=== PATIENT | male | born 1940 | race Caucasian/White ===

== ENCOUNTER → 2017-10-01 | Outpatient (CLI) | payer MEDICARE, BC ==
[~2017-10-01] MED LIST: ALEV220T14 PO; ASPI81TA23 PO; DOXA1TAB43 PO; ENAL20TA PO; FLUT50SP EACH NARE; HYDR-3516 PO; NITR1SUB3 SL; PROSCAP3 PO; SM CTAB PO
[2017-10-01 09:55] LABS: AUTOMATED NEUTROPHIL # 2.8 TH/MM3 (1.8-7.7); BASOPHIL % 0.2 % (0.0-2.0); EOSINOPHIL # 0.1 TH/MM3 (0-0.4); EOSINOPHIL % 1.5 % (0.0-4.0); HEMATOCRIT 43.6 % (39.0-51.0); HEMOGLOBIN 14.7 GM/DL (13.0-17.0); LYMPH % 22.9 % (9.0-44.0); MEAN CORPUSCULAR HEMOGLOBIN 27.9 PG (27.0-34.0); MEAN CORPUSCULAR HGB CONC 33.7 % (32.0-36.0); MEAN PLATELET VOLUME 6.5 FL (7.0-11.0); MONO % 8.6 % (0.0-8.0); MONOCYTE # 0.4 TH/MM3 (0-0.9); NEUT % 66.8 % (16.0-70.0); PLATELET COUNT 147 TH/MM3 (150-450); RED BLOOD COUNT 5.25 MIL/MM3 (4.50-5.90); RED CELL DISTRIBUTION WIDTH 13.6 % (11.6-17.2); WHITE BLOOD COUNT 4.2 TH/MM3 (4.0-11.0)
[2017-10-01 10:02] LABS: INTERNATIONAL NORMALIZED RATIO 1.1 RATIO; PROTHROMBIN TIME - PATIENT 10.9 SEC (9.8-11.6)
[2017-10-01 10:02] LABS: BILIRUBIN, URINE NEG (NEG); BLOOD, URINE NEG (NEG); GLUCOSE,URINE NEG (NEG); KETONE, URINE NEG (NEG); MUCUS URINE FEW /lpf (OCC); NITRITE,URINE NEG (NEG); URINE COLOR YELLOW (YELLW/STRAW); URINE LEUKOCYTE ESTERASE NEG (NEG)
--- NOTE | 2017-10-01 10:14 | RADRPT ---
EXAM DATE/TIME: 10/01/2017 09:52 [facility] COMPARISON: No previous studies available for comparison. INDICATIONS : Evaluate for pneumonia, pneumothorax and communicable diseases. Pre-op for right total hip replacemen t. MEDICAL HISTORY : Diabetes mellitus type II. Hypertension SURGICAL HISTORY : CABG. Cardiac stent. ENCOUNTER: Initial ACUITY: 1 day PAIN SCORE: 0/10 LOCATION: Bilateral chest FINDINGS: PA and lateral views of the chest demonstrate the lungs to be symmetrically aerated without evidence of mass, infiltrate or effusion. Thoracic stent graft is evident. Mild compensated cardiomegaly. S ternal wires of previous bypass are noted.. Osseous structures are intact. CONCLUSION: No acute disease. Previous bypass. Thoracic stent graft. Jayson Miranda MD FACR on October 01, 2017 at 10:11 Board Certified Radiologist. This report was verified electronically.
[2017-10-01 10:20] LABS: BICARBONATE 28.9 MEQ/L (21.0-32.0); CALCIUM 8.7 MG/DL (8.5-10.1); CREATININE 0.86 MG/DL (0.60-1.30)
== END ==
LOC: CPRE 08:47
PROVIDERS: ATTEND Orthopaedic Surgery
DX: Z01.812 Encounter for preprocedural laboratory examination (principal); Z01.818 Encounter for other preprocedural examination; M87.051 Idiopathic aseptic necrosis of right femur
CPT/HCPCS: 36415; 71046; 80048; 81001; 85025; 85610

== ENCOUNTER 2017-10-16 05:35 | Inpatient (IN) | payer MEDICARE, BC ==
--- NOTE | 2017-10-11 12:29 | MH ---
cc: BERNARDJERILULUED DATE OF ADMISSION: 10/16/2017 ADMITTING DIAGNOSIS Avascular necrosis right hip, pain right hip, gait disturbance, limb length discrepancy with shortening right leg. HISTORY The patient is a 77-year-old white male who has had at least a three-year history of pain involving his right hip. He had initially noted the onset of his symptoms unrelated to injury or unusual activity. He did not seek any immediate evaluation or treatment while he continued to conform to exercise activities which included use of a treadmill, being aware of limited endurance with regards to all ambulatory activities in March of this past year he experienced increasing discomfort that he suspected as being related to his lower back and at that time he was evaluated by his primary care physician Dr. Nilda Verma who prescribed physical therapy and later sent the patient for pain management disposition which did include a series of epidural injections that unfortunately did not prove to be beneficial. The patient also received chiropractic intervention which includes acupuncture treatment neither of which afforded him any appreciable relief. He later underwent neurosurgical consultation and at that time was advised to consider MRI scan evaluation of his right hip. This study was subsequently accomplished which did identify avascular necrosis about the superior articular surface of his right femoral head. There was secondary osteoarthritic changes with joint effusion and marrow edema. He also was noted to have a partial tear of his gluteus minimus muscle and a partial tear versus myositis of the sartorius muscle overlying the hip joint. The patient presented to the undersigned physician in August of this year and at that time reported ongoing difficulties with regards to all ambulatory activities. He was requiring use of a cane as an ambulatory aid. Overall findings were reviewed with the patient at that time. His x-ray studies did reveal obvious degenerative changes with pronounced narrowing of the joint space and early deformation of the femoral head. The pros and cons of continuing with conservative management versus operative intervention that would involve a total hip arthroplasty were outlined in detail. Emphasis was made regarding the fact that the decision to proceed with surgery would be left entirely to the patient's discretion. The patient readily admitted that he felt his symptoms had progressed to a point in time where he was desirous of proceeding accordingly, especially in light of his obvious limitations regarding all weightbearing activities. In compliance with his wishes he was subsequently scheduled for admission at this time in order that right total hip arthroplasty be accomplished. PAST MEDICAL HISTORY HOSPITALIZATIONS AND SURGERIES 1. Bilateral total knee arthroplasties. 2. Lumbar laminectomy with fusion. 3. Umbilical herniorrhaphy. 4. Colon resection for diverticulitis. 5. Triple cardiac bypass. 6. Tonsillectomy and adenoidectomy. 7. Colonoscopy. ILLNESSES The patient's medical illnesses include - 1. Allergic rhinitis. 2. Claustrophobia. 3. Benign essential hypertension. 4. Diverticular disease of the colon. 5. Schneider's esophagitis. 6. Coronary arthrosclerosis. 7. Morbid obesity. 8. Sleep apnea. 9. Osteoarthritis. CURRENT MEDICATIONS 1. Enalapril 20 mg twice daily. 2. Aspirin 81 mg tablet daily. 3. Doxazosin 8 mg daily. 4. Fluticasone one spray daily. 5. Hydrocodone 325/5 daily. 6. Nitro 0.4 p.r.n. 7. Actifed one to two times daily. 8. Prostagenix one daily. 9. Aleve p.r.n. 10. Hydrochlorothiazide 25 mg daily. ALLERGIES The patient describes drug allergies to - SULFA, being unspecific with regards to reaction. STATIN DRUGS have caused myalgia including LOVASTATIN AND CRESTOR. The patient suggested an allergy reaction to morphine but apparently this was related to an excessive dose of the medication, the patient reporting that he has received it as a inspector handbag frames medication in the past for pain management without any difficulty being experienced. REVIEW OF SYSTEMS HEENT: He wears glasses for reading purposes. Denies headache, seizure or syncope. Occasional sinus congestion as related to environmental irritants. No epistaxis. Auditory acuity intact. No tinnitus. No bleeding gums or dysphagia. He has complete upper and partial lower dentures. RESPIRATORY: No cough, shortness of breath or tuberculosis. There is a positive history of pneumonia. He has a history of sleep apnea for which C-PAP was utilized. CARDIOVASCULAR: No angina. He is status post triple cardiac bypass surgery. GASTROINTESTINAL: Appetite is good. Bowel movements are regular. No hepatitis, gallbladder disease, ulcers or hemorrhoids. GENITOURINARY: No urinary tract infection. No kidney stones. MUSCULOSKELETAL: History of rib fractures. PSYCHIATRIC: No psychiatric illness. His remaining review of systems is unremarkable and noncontributory. FAMILY HISTORY approximately 20 years. Two sons indicated to be in good health. Family history is positive for hypertension, diabetes, heart disease and breast cancer. 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 He completed a high school education with additional college credits. He denies active use of tobacco for at least 40 years but had been less than a two pack per day user for approximately 25 years prior to that time. He denies ethanol consumption. PHYSICAL EXAMINATION VITAL SIGNS: Height 5 feet, 8 inches, weight 244 pounds. GENERAL: An alert, oriented and responsive 77-year-old white male who sits quietly upon the examination table with no obvious distress. HEAD, EYES, EARS, NOSE, AND THROAT: Pupils are equal, round and reactive to light. Extraocular movements full. Sclerae clear. External nares clear. External auditory canals clear. Edentulous in the maxillary distribution. Semi-edentulous in the mandibular distribution. Mucous membranes pink and moist. Pharynx clear. NECK: Supple. There is an active range of motion without appreciable pain. Carotid pulse bilaterally. Trachea midline. Thyroid without enlargement. LUNGS: Clear to auscultation and percussion. No CVA tenderness. No discomfort throughout the dorsolumbar spine. HEART: Regular rhythm. No murmur or gallop. ABDOMEN: Mildly obese, soft, nontender. Bowel sounds are present. RECTAL: Per primary care physician. EXTREMITIES: Right hip - There is no localizing tenderness to palpation. There is restricted and guarded mobility about the hip joint in all ranges assessed with pain at the extreme of motion. Straight-leg raising unremarkable at 80 degrees. German sign is positive. Limb length discrepancy with shortening of the right leg of at least 1 cm magnitude. Distal sensory grossly intact. Pronounced antalgic gait with cane support. NEUROLOGIC: Cranial nerves II-XII grossly intact. IMPRESSION Avascular necrosis right femoral head, pain right hip, gait disturbance, limb length discrepancy with shortening of right leg. PLAN Right total hip arthroplasty. The nature of the planned surgical procedure, the potential complications and risks associated, the expectations of surgery and the consent form were thoroughly reviewed with the patient prior to his admission to the hospital. Sukhjinder has indicated his full understanding regarding all of the above and given consent to proceed with treatment as outlined. Medical evaluation and clearance for surgery will be completed by his primary care physician, Dr. Nilda Verma, cardiac clearance per Dr. Dunham. MD KYA Braga/SSB /11:25 AM /12:06 PM
[~2017-10-16] VITALS: Ht 172.7 cm; Wt 115.5 kg
[2017-10-16] MEDS ORDERED: ceFAZolin 2 GM PREMIX 50 ML IV SCH (06:00)
[2017-10-16] MEDS ORDERED: POVIDONE IODINE 7.5% SCRUB 118 ML BOTTLE TOPICAL SCH (06:00)
[2017-10-16] MEDS ORDERED: HYDR25TA5 PO (06:11)
[2017-10-16] MEDS ORDERED: ENAL20TA PO (06:11)
[2017-10-16] MEDS ORDERED: SODIUM CHLORID 0.9% 500 ML IV PRN (06:15)
[2017-10-16] MEDS ORDERED: METOPROLOL TARTRATE 25 MG TAB PO PRN (06:15)
[2017-10-16] MEDS ORDERED: POVIDONE IODINE 5% (ANTISEPSIS KIT) 4 APPLICATIONS EACH NARE PRN (06:15)
[2017-10-16] MEDS ORDERED: CHLORHEXIDINE GLUCONATE 2 % 1 PACK (2 CLOTHS) TOPICAL PRN (06:15)
[2017-10-16] MEDS ORDERED: LACTATED RINGER'S 1000 ML IV PRN (06:15)
[2017-10-16] MEDS ORDERED: ceFAZolin INJ 1,000 MG VIAL ONE (06:19)
[2017-10-16] MEDS ORDERED: TRANEXAMIC ACID 1 GM PRIOR TO PROCEDURE IV SCH ×2 (07:00)
[2017-10-16] MEDS ORDERED: DO NOT ADM ANY ANTICOAGULANT DRUGS PRN (09:32)
[2017-10-16] MEDS ORDERED: XARE10TA PO (09:43)
[2017-10-16] MEDS ORDERED: HYDR-3516 PO (09:43)
[2017-10-16] MEDS ORDERED: DOCUSATE SODIUM 100 MG CAP PO PRN (09:45)
[2017-10-16] MEDS ORDERED: TRANEXAMIC ACID INJ 1,000 MG in SODIUM CHLORIDE 0.9% INJ 100 ML IV SCH (09:45)
[2017-10-16] MEDS ORDERED: ACETAMINOPHEN/HYDROcodone 325 MG/5 MG TAB PO PRN (09:45)
[2017-10-16] MEDS ORDERED: ACETAMINOPHEN 325 MG TAB PO PRN (09:45)
[2017-10-16] MEDS ORDERED: ONDANSETRON HCL 4 MG/2 ML VIAL IVP PRN (09:45)
[2017-10-16] MEDS ORDERED: Post-op Orders (for Pharmacy) XX ONE (09:45)
[2017-10-16] MEDS ORDERED: NALOXONE HCL 0.4 MG/ML AMP IV PUSH PRN (09:45)
[2017-10-16] MEDS ORDERED: MISCELLANEOUS PHARMACY INFORMATION XX ONE (09:45)
--- NOTE | 2017-10-16 09:45 | HHI.FF ---
Face to Face Verification Diagnosis: (1) Avascular necrosis of bone of right hip Physical Therapy Gait training Hip: Total hip, Protocol: Right, Abduction pillow while in bed Right LE Weight Bearing: WB as tolerated Right LE Range of Motion: Active ROM Nursing Dressing Changes: Daily dressing change I have seen patient Sukhjinder GregoryJr on 10/16/17. My clinical findings support the need for the requested home health care services because: Limited ability to care for self High risk of falls I certify that my clinical findings support that this patient is homebound because: Post-op weakness Unsteady gait/balance Unsafe to leave home unassisted Miles Baker MD Oct 16, 2017 09:45
[2017-10-16] MEDS ORDERED: ADJUSTABLE COMM1 MIS (09:48)
[2017-10-16] MEDS ORDERED: WALKER WHEELS/F1 MIS (09:48)
[2017-10-16] MEDS: DEXT 5%-NACL 0.45% 1000 ML INJ 1,000 ML IV SCH ×2 (09:54→17:53)
[2017-10-16] MEDS: HYDROmorphone HCL PCA 6 MG/30 ML IV SCH ×2 (09:54→17:57)
[2017-10-16] MEDS ORDERED: TRANEXAMIC ACID 1 GM POST-OP IV SCH ×2 (10:00)
--- NOTE | 2017-10-16 10:25 | RADRPT ---
EXAM DATE/TIME: 10/16/2017 10:00 [facility] COMPARISON: No previous studies available for comparison. INDICATIONS : Post op right total hip replacement. MEDICAL HISTORY : None. SURGICAL HISTORY : None. ENCOUNTER: Initial ACUITY: 1 day PAIN SCORE: 7/10 LOCATION: Right Hip FINDINGS: Frontal view of the right hip was performed in the recovery room status post total hip arthroplasty. The acetabular component. Femoral component is noncemented. Alignment is anatomic. No radiopaque foreign bodies. CONCLUSION: Expected postsurgical changes status post total hip arthroplasty. Ramin Gary MD on October 16, 2017 at 10:22 Board Certified Radiologist. This report was verified electronically.
[2017-10-16] MEDS ORDERED: DEXAMETHASONE SOD PHOS 4 MG/ML VIAL IV ONE (12:00)
[2017-10-16] MEDS ORDERED: PHENYLEPH/NS 1000 MCG/10 ML SYR IV ONE (12:00)
[2017-10-16] MEDS ORDERED: PROPOFOL 200 MG/20 ML AMP IV ONE (12:00)
[2017-10-16] MEDS ORDERED: ePHEDrine/NS 25 MG/5 ML SYRINGE IV ONE (12:00)
[2017-10-16] MEDS ORDERED: LACTATED RINGER'S 1000 ML INJ 2,000 ML IV ONE (12:00)
[2017-10-16] MEDS ORDERED: ONDANSETRON HCL 4 MG/2 ML VIAL IV ONE (12:00)
[2017-10-16] MEDS ORDERED: ROCURONIUM INJ 50 MG/5 ML SYRINGE IV PUSH ONE (12:00)
[2017-10-16] MEDS ORDERED: LIDOCAINE HCL 1% PF 5 ML SYRINGE OTHER ONE (12:00)
[2017-10-16 13:00] VITALS: BP 152/71; PULSE 91; RESP 18; TEMP 95.6; O2SAT 96
--- NOTE | 2017-10-16 13:53 | PD.CONS ---
HPI Service [facility] Consult Requested By Reason for Consult post-op medical management. Primary Care Physician Nilda Verma M.D. Diagnoses: History of Present Illness patient is a 77 y/o male with history of avascular necrosis of the right hip, CAD, hypertension, BPH who underwent right total hip arthroplasty today. he says that he had some nausea earlier but with no emesis, or abdominal pain. he denies any chest pain or sob. pain seems to be fairly controlled. d/w the RN at the bedside. Review of Systems Constitutional: DENIES: Fever, Weight loss, Chills, Night Sweats Eyes: DENIES: Blurred vision, Diplopia, Vision loss, Double Vision Ears, nose, mouth, throat: DENIES: Tinnitus, Vertigo, Throat pain, Epistaxis Respiratory: DENIES: Apneas, Cough, Snoring, Wheezing, Hemoptysis, Sputum production, Shortness of breath Cardiovascular: DENIES: Chest pain, Palpitations, Syncope, Dyspnea on Exertion , PND, Lower Extremity Edema, Orthopnea, Claudication Gastrointestinal: COMPLAINS OF: Nausea, DENIES: Abdominal pain, Black stools, Bloody stools, Constipation, Diarrhea, Vomiting, Difficulty Swallowing, Anorexia Genitourinary: DENIES: Urinary frequency, Urgency, Hematuria, Dysuria Musculoskeletal: DENIES: Joint pain, Muscle aches, Stiffness, Joint Swelling Integumentary: DENIES: Rash Neurologic: DENIES: Abnormal gait, Headache, Localized weakness, Paresthesias, Seizures, Speech Problems, Tremor, Poor Balance Psychiatric: DENIES: Anxiety, Confusion, Mood changes, Depression, Hallucinations, Agitation, Suicidal Ideation, Homicidal Ideation, Delusions Past Family Social History Allergies: Coded Allergies: Sulfa (Sulfonamide Antibiotics) (Verified Allergy, Severe, 10/16/17) hematuria aspirin (Verified Allergy, Severe, Anaphylaxis, 10/16/17) morphine (Verified Allergy, Severe, Hallucinations, 10/16/17) oxycodone (Verified Allergy, Severe, Anaphylaxis, 10/16/17) Past Medical History CAD/ avascular necrosis of the right hip/ BPH/hypertension. Past Surgical History cardiac stent placement/ CABG/ knee replacement/ back surgery. Reported Medications enalapril/ Doxazosin/ HCTZ/ aspirin Active Ordered Medications Inpatient Medications Acetaminophen (Tylenol) 650 mg Q6H PRN PO FEVER > 101; Start 10/16/17 at 09:45 Acetaminophen/ Hydrocodone Bitart ([place] 5-325 Mg) 2 tab Q4H PRN PO PAIN SCALE 5 TO 10; Start 10/16/17 at 09:45 Cefazolin Sodium 1000 mg/Sodium Chloride 100 ml @ 200 mls/hr Q6H IV Last administered on 10/16/17at 12:55; Start 10/16/17 at 13:00; Stop 10/17/17 at 01:29 Cefazolin Sodium/ Dextrose 50 ml @ 100 mls/hr STONEWORK TRACER IV Last administered on 10/16/17at 06:33; Start 10/16/17 at 06:00; Stop 10/19/17 at 05:59 Chlorhexidine Gluconate (Chlorhexidine 2% Cloth) 3 pack STONEWORK TRACER PRN TOPICAL SEE LABEL COMMENTS Last administered on 10/16/17at 05:45; Start 10/16/17 at 06:15 ; Stop 10/19/17 at 06:14 Dextrose/Sodium Chloride 1,000 ml @ 125 mls/hr Q8H IV Last administered on at 09:54; Start 10/16/17 at 11:30 Docusate Sodium (Colace) 100 mg BID PRN PO CONSTIPATION; Start 10/16/17 at 09: 45 Hydromorphone HCl (Dilaudid SEAMLESS T[employer]BE MILL OPERATOR Inj) 6 mg UNSCH IV Last administered on at 09:54; Start 10/16/17 at 09:45; Stop 10/18/17 at 09:44 Lactated Ringer's 1,000 ml @ 30 mls/hr Q24H PRN IV SEE LABEL COMMENTS; Start at 06:15; Stop 10/19/17 at 06:14 Metoprolol Tartrate (Lopressor) 25 mg STONEWORK TRACER PRN PO SEE LABEL COMMENTS; Start 10/16/17 at 06:15; Stop 10/19/17 at 06:14 Miscellaneous Information ALL NURSING DEPARTME... UNSCH PRN .XX SEE LABEL COMMENTS; Start 10/16/17 at 09:32; Stop 10/17/17 at 09:31 Miscellaneous Information (Post-op Orders (for Pharmacy)) STAT ONCE XX ; Start 10/16/17 at 09:45; Stop 10/16/17 at 11:20; Status DC Miscellaneous Medication ([facility] Pharmacy Information) ONCE ONCE XX ; Start at 09:45; Stop 10/16/17 at 11:25; Status DC Naloxone HCl (Narcan Inj) 0.4 mg UNSCH PRN IV PUSH RESPIRATORY RATE LESS THAN 10; Start 10/16/17 at 09:45 Ondansetron HCl (Zofran Inj) 4 mg Q6H PRN IVP NAUSEA OR VOMITING Last administered on 10/16/17at 13:34; Start 10/16/17 at 09:45 SEAMLESS T[employer] M[employer] OPERATOR Dosage Infused (Pha) 1 Q8HR .XX ; Start 10/16/17 at 14:00; Stop 10/18/17 at 13:59 Povidone Iodine (Betadine 5% Antisepsis Kit) 1 applic STONEWORK TRACER PRN EACH NARE SEE LABEL COMMENTS Last administered on 10/16/17at 06:15; Start 10/16/17 at 06:15 ; Stop 10/19/17 at 06:14 Povidone Iodine (Betadine 7.5% Scrub) 1 applic ONCE TOPICAL ; Start 10/16/17 at 06:00; Stop 10/19/17 at 05:59 Rivaroxaban (Xarelto) 10 mg Q24H PO ; Start 10/17/17 at 08:30 Sodium Chloride 500 ml @ 30 mls/hr [id number] PRN IV SEE LABEL COMMENTS; Start at 06:15; Stop 10/19/17 at 06:14 Tranexamic Acid 1000 mg/Sodium Chloride 110 ml @ 220 mls/hr ONCE IV Last administered on 10/16/17at 10:14; Start 10/16/17 at 10:00; Stop 10/16/17 at 11:00 ; Status DC Zolpidem Tartrate (Ambien) 5 mg HS PRN PO SLEEP; Start 10/16/17 at 21:00 Family History diabetes in sister. Social History used to smoke and drink in the past. Physical Exam Vital Signs Vital Signs Date Time Temp Pulse Resp B/P (MAP) Pulse Ox O2 Delivery O2 Flow Rate FiO2 10/16/17 12:45 98.4 91 14 125/76 (92) 96 Nasal Cannula 2 10/16/17 12:00 83 12 125/76 (92) 94 10/16/17 11:00 80 11 124/60 (81) 95 10/16/17 10:15 80 14 153/67 (95) 95 10/16/17 10:00 81 15 146/66 (92) 95 10/16/17 09:54 20 10/16/17 09:45 90 22 130/72 (91) 92 Nasal Cannula 2 10/16/17 09:30 98.4 92 22 134/70 (91) 97 Nasal Cannula 2 10/16/17 06:18 98.1 88 20 181/77 (111) 96 Physical Exam GENERAL: This is a well-nourished, well-developed patient, in no apparent distress. SKIN: No rashes, ecchymoses or lesions. Cool and dry. HEAD: Atraumatic. Normocephalic. No temporal or scalp tenderness. EYES: Pupils equal round and reactive. Extraocular motions intact. No scleral icterus. No injection or drainage. ENT: Nose without bleeding, purulent drainage or septal hematoma. Throat without erythema, tonsillar hypertrophy or exudate. Uvula midline. Airway patent. NECK: Trachea midline. No JVD or lymphadenopathy. Supple, nontender, no meningeal signs. CARDIOVASCULAR: Regular rate and rhythm without murmurs, gallops, or rubs. RESPIRATORY: Clear to auscultation. Breath sounds equal bilaterally. No wheezes , rales, or rhonchi. GASTROINTESTINAL: Abdomen soft, non-tender, nondistended. No hepato-splenomegaly , or palpable masses. No guarding. MUSCULOSKELETAL: Extremities without clubbing, cyanosis, or edema. No joint tenderness, effusion, or edema noted. No calf tenderness. Negative Homans sign bilaterally. NEUROLOGICAL: Awake and alert. Cranial nerves II through XII intact. Motor and sensory grossly within normal limits. Five out of 5 muscle strength in all muscle groups. Normal speech. Imaging Last Impressions Hip X-Ray 10/16/17 [id number] Signed Impressions: Service Date/Time: Monday, October 16, 2017 10:00 - CONCLUSION: Expected postsurgical changes status post total hip arthroplasty. Ramin Gary MD Assessment and Plan Assessment and Plan A/P - avascular necrosis of the right hip- s/p right total hip replacement continue with pain control and PT- management per ortho. -nausea; antiemetics as needed. -CAD- s/p CABG/hypertension; resume home meds soon if BP stable- resume aspirin when ok with ortho. -BPH; resume Doxazosin -DVT prophylaxis with Xarelto-per ortho thank you for the consult. Discussed Condition With the patient and RN. Andreas Amaral MD Oct 16, 2017 13:53
[2017-10-16] MEDS: PCA - TOTAL MG DILAUDID DELIVERED PER SHIFT SCH ×2 (14:00→21:47)
[2017-10-16 16:00] VITALS: BP 140/70; PULSE 83; RESP 18; TEMP 96; O2SAT 98
[2017-10-16 16:05] VITALS: O2SAT 96
--- NOTE | 2017-10-16 18:32 | MP ---
cc: ED BAKER M.D. 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 PROCEDURE: Right total hip arthroplasty. SURGEON: Ed Baker M.D. ANESTHESIA General endotracheal anesthesia. INDICATIONS: A 77-year-old white male with a 3-year history of right hip pain of gradual onset unrelated to injury or unusual activity. Initially he did not seek any evaluation or treatment while continuing to conform to exercise activities which included use of a treadmill, but being aware of limited endurance with regards to all ambulatory activities. In March of this past year he experienced increasing discomfort that initially thought might be related to his lower back region and at that time he was evaluated by his primary care physician Dr. Nilda Verma. Physical therapy was prescribed and the patient was later sent for pain management disposition which did include a series of epidural injections, that unfortunately did not prove to be beneficial. The patient also received chiropractic intervention which included acupuncture treatment neither of which afforded him any relief. He later underwent neurosurgical consultation and at that time was advised to consider an MRI scan evaluation of his right hip. The study was subsequently accomplished which did identify avascular necrosis about the superior articular surface of the right femoral head. There was secondary osteoarthritic changes with joint effusion and marrow edema. The patient was also noted to have a partial tear of his gluteus minimus muscle and partial tear versus myositis of the sartorius muscle overlying the hip joint. The patient presented to the undersigned physician in August of this year and at that time reported ongoing difficulties regarding all ambulatory activities. He was requiring use of a cane as an ambulatory aid. His x-ray studies revealed obvious degenerative changes with pronounced narrowing of the joint space and early deformation of the femoral head. Findings and treatment options were reviewed. The pros and cons of continuing with conservative management versus operative intervention that would involve a total hip arthroplasty were outlined in detail. Emphasis was made regarding the fact that the decision to proceed with surgery would be left entirely to the patient's discretion. The patient readily admitted that his symptoms had progressed to a point in time where he was desirous of proceeding with surgery as discussed and in compliance with his wishes he was scheduled for admission at this time in order that the above be accomplished. FORMAT Following the induction of satisfactory general anesthesia by endotracheal intubation as completed per the Department of Anesthesia, the patient was positioned upon the operating table in a left lateral decubitus fashion. The right hip and lower extremity proper were isolated with a U drape, thereafter being prepped with Betadine solution and draped into a sterile field in the routine manner. Prior to initiation of the actual procedure the standard time-out protocol was completed. All parameters were appropriately addressed and confirmed by operating room personnel. A standard posterolateral approach to the hip was initiated through a sharp skin incision and developed to underlying subcutaneous tissue with hemostasis maintained by electrocautery. By deepening dissection the fascia overlying the gluteus musculature was exposed and thereafter sharply incised to the limits of the incision. The underlying gluteus fibers being divided with the Bovie on cutting current. Progressive dissection facilitated exposure of the short external rotators structures. The piriformis tendon was utilized in an anatomical landmark and division of these structures completed in a superior to inferior orientation and reflected medially exposing the posterior capsule. The sciatic nerve was protected. An L-shaped capsulotomy was accomplished which a posterior dislocation of the femoral head was completed. Examination revealed severe degenerative changes with complete erosion of articular cartilage with underlying subchondral bone exposed and peripheral hypertrophic bony reaction. The femoral template was positioned for alignment orientation. The neck was scored and thereafter divided with power saw. The amputated segment being passed to the back table as surgical specimen. Attention was initially directed to the proximal femur. Cancellous bone was harvested. The tapered reamer was inserted for alignment orientation. Sequential rasping and broaching was accomplished from 7-9 mm with calcar wayne being utilized at the 9 mm stage. The 9 mm stem was determined to be a favorable fit. The trial component being removed, attention was redirected to the acetabulum. The labrum and reactive soft tissue were sharply excised. Progressive reaming was accomplished from 47-50 mm. The 50 mm trial shell was positioned and determined to be satisfactory. With all trial components being removed the wound was copiously irrigated with pulsating antibiotic solution. Hemostasis maintained by electrocautery. Harvested cancellous bone was digitally impacted into the depths of the acetabulum and thereafter a 50 mm Continuum acetabular shell was firmly seated in approximately 45 degrees inclination to the horizontal and slight anteversion. A single 25 mm 6.5 cancellous screw was inserted superiorly to augment fixation. The permanent high wall acetabular liner was affixed to the acetabular shell. Attention was redirected to the proximal femur. The size 9 trial femoral broach was repositioned and trial reduction followed utilizing a 32 mm modular head with -6 mm neck length adapter. The hip readily reduced and was carried through a passive range of motion with stability demonstrated at 90 degrees flexion and 45 degrees internal rotation. An open dislocation was completed. All trial components being removed, the canal was thoroughly irrigated and dried and thereafter the permanent size 9 Echo Biometric standard femoral stem was firmly seated to which a 32 mm ceramic head with -6 mm neck length adapter was attached. The hip was reduced and carried through a passive range of motion with repeat stability being again noted. Final irrigation was accomplished with hemostasis maintained. The posterior capsule was repaired with 0 Vicryl suture. The piriformis tendon and short external rotators structures were reapproximated in a similar manner. The fascia of the gluteus musculature was reapproximated with a running 0 Vicryl suture. The remaining portion of the wound was closed in layers in the routine manner, skin margins being reapproximated with a running subcuticular 3-0 Vicryl suture over which Steri-Strips were applied. Xeroform gauze and a bulky dry sterile dressing were placed. The patient was repositioned into a supine orientation when abduction splint was attached, anesthesia was discontinued. The patient was thus transferred to the hospital bed and returned to the recovery room in satisfactory condition having tolerated his operative procedure well. Estimated blood loss was approximately 150 cc as determined per anesthesia. Femoral components were of the [employer] acetabular components of the [employer]. MD KYA Braga/JORDAN /9:26 AM /6:05 PM
[2017-10-16] MEDS ORDERED: ZOLPIDEM TARTRATE 5 MG TAB PO PRN (21:00)
[2017-10-16 21:07] VITALS: O2SAT 97
[2017-10-16 21:40] VITALS: BP 157/96; PULSE 81; RESP 17; TEMP 96.3; O2SAT 96
[2017-10-16] MEDS: DOXAZOSIN MESYLATE 4 MG TAB PO SCH (21:46)
[2017-10-17] VITALS (8 sets, daily range): BP systolic 142–153; BP diastolic 64–75; PULSE 65–96; RESP 17–20; TEMP 96.7–99.8; O2SAT 90–94
[2017-10-17] MEDS: DEXT 5%-NACL 0.45% 1000 ML INJ 1,000 ML IV SCH (01:43)
[2017-10-17] MEDS: PCA - TOTAL MG DILAUDID DELIVERED PER SHIFT SCH ×3 (05:50→21:06)
[2017-10-17 06:48] LABS: HEMATOCRIT 36.7 % (39.0-51.0); HEMOGLOBIN 12.6 GM/DL (13.0-17.0)
[2017-10-17] MEDS: RIVAROXABAN 10 MG TAB PO SCH (08:10)
--- NOTE | 2017-10-17 10:57 | HHI.PR ---
Subjective Remarks in no acute distress. no nausea. had slight dizziness earlier which has resolved. pain seems to be fairly controlled. no fever. Objective Vitals Vital Signs Date Time Temp Pulse Resp B/P (MAP) Pulse Ox O2 Delivery O2 Flow Rate FiO2 10/17/17 09:47 94 Nasal Cannula 2.00 10/17/17 08:00 97.6 77 18 144/69 (94) 94 10/17/17 05:50 18 10/17/17 04:40 97.6 66 18 145/64 (91) 93 10/17/17 01:20 96.7 72 17 142/72 (95) 92 10/16/17 21:47 18 10/16/17 21:40 96.3 81 17 157/96 (116) 96 10/16/17 21:07 97 Nasal Cannula 2.00 10/16/17 17:57 16 10/16/17 16:05 96 Nasal Cannula 2.00 10/16/17 16:00 96.0 83 18 140/70 (93) 98 10/16/17 14:00 12 10/16/17 13:00 95.6 91 18 152/71 (98) 96 10/16/17 12:45 98.4 91 14 125/76 (92) 96 Nasal Cannula 2 10/16/17 12:00 83 12 125/76 (92) 94 10/16/17 11:00 80 11 124/60 (81) 95 I/O 10/16/17 10/16/17 10/16/17 10/17/17 10/17/17 10/17/17 07:00 15:00 23:00 07:00 15:00 23:00 Intake Total 2290 ml 2889 ml Output Total 250 ml 150 ml 550 ml Balance 2040 ml -150 ml 2339 ml Intake Oral 480 ml 720 ml IV Total 110 ml 2169 ml Other 1700 ml Output Urine Total 100 ml 150 ml 550 ml Estimated Blood Loss 150 ml # Bowel Movements 0 0 Result Diagram: 10/17/17 0603 Imaging Last Impressions Hip X-Ray 10/16/17 0936 Signed Impressions: Service Date/Time: Monday, October 16, 2017 10:00 - CONCLUSION: Expected postsurgical changes status post total hip arthroplasty. Ramin Gary MD Objective Remarks GENERAL: This is a well-nourished, well-developed patient, in no apparent distress. CARDIOVASCULAR: Regular rate and regular rhythm without murmurs, gallops, or rubs. RESPIRATORY: Clear to auscultation. Breath sounds equal bilaterally. No wheezes , rales, or rhonchi. GASTROINTESTINAL: Abdomen soft, non-tender, nondistended. Normal, active bowel sounds MUSCULOSKELETAL: Extremities without clubbing, cyanosis, or edema. NEURO: Alert & Oriented x4 to person, place, time, situation. Moves all ext x4 Medications and IVs Inpatient Medications Acetaminophen (Tylenol) 650 mg Q6H PRN PO FEVER > 101; Start 10/16/17 at 09:45 Acetaminophen/ Hydrocodone Bitart ([place] 5-325 Mg) 2 tab Q4H PRN PO PAIN SCALE 5 TO 10; Start 10/16/17 at 09:45 Cefazolin Sodium 1000 mg/Sodium Chloride 100 ml @ 200 mls/hr Q6H IV Last administered on 10/17/17at 01:33; Start 10/16/17 at 13:00; Stop 10/17/17 at 01:29 ; Status DC Cefazolin Sodium/ Dextrose 50 ml @ 100 mls/hr PRESIDENTIAL HELICOPTER CREW CHIEF IV Last administered on 10/16/17at 06:33; Start 10/16/17 at 06:00; Stop 10/19/17 at 05:59 Chlorhexidine Gluconate (Chlorhexidine 2% Cloth) 3 pack PRESIDENTIAL HELICOPTER CREW CHIEF PRN TOPICAL SEE LABEL COMMENTS Last administered on 10/16/17at 05:45; Start 10/16/17 at 06:15 ; Stop 10/19/17 at 06:14 Dextrose/Sodium Chloride 1,000 ml @ 125 mls/hr Q8H IV Last administered on at 01:43; Start 10/16/17 at 11:30 Docusate Sodium (Colace) 100 mg BID PRN PO CONSTIPATION; Start 10/16/17 at 09: 45 Doxazosin Mesylate (Cardura) 8 mg HS PO Last administered on 10/16/17at 21:46; Start 10/16/17 at 21:00 Hydromorphone HCl (Dilaudid WHANAU SUPPORT WORKER Inj) 6 mg UNSCH IV Last administered on at 17:57; Start 10/16/17 at 09:45; Stop 10/18/17 at 09:44 Lactated Ringer's 1,000 ml @ 30 mls/hr Q24H PRN IV SEE LABEL COMMENTS; Start at 06:15; Stop 10/19/17 at 06:14 Metoprolol Tartrate (Lopressor) 25 mg PRESIDENTIAL HELICOPTER CREW CHIEF PRN PO SEE LABEL COMMENTS; Start 10/16/17 at 06:15; Stop 10/19/17 at 06:14 Miscellaneous Information ALL NURSING DEPARTME... UNSCH PRN .XX SEE LABEL COMMENTS; Start 10/16/17 at 09:32; Stop 10/17/17 at 09:31; Status DC Miscellaneous Information (Post-op Orders (for Pharmacy)) STAT ONCE XX ; Start 10/16/17 at 09:45; Stop 10/16/17 at 11:20; Status DC Miscellaneous Medication ([facility] [place] Pharmacy Information) ONCE ONCE XX ; Start at 09:45; Stop 10/16/17 at 11:25; Status DC Naloxone HCl (Narcan Inj) 0.4 mg UNSCH PRN IV PUSH RESPIRATORY RATE LESS THAN 10; Start 10/16/17 at 09:45 Ondansetron HCl (Zofran Inj) 4 mg Q6H PRN IVP NAUSEA OR VOMITING Last administered on 10/16/17at 13:34; Start 10/16/17 at 09:45 WHANAU SUPPORT WORKER Dosage Infused (Pha) 1 Q8HR .XX Last administered on 10/17/17at 05:50; Start 10/16/17 at 14:00; Stop 10/18/17 at 13:59 Povidone Iodine (Betadine 5% Antisepsis Kit) 1 applic PRESIDENTIAL HELICOPTER CREW CHIEF PRN EACH NARE SEE LABEL COMMENTS Last administered on 10/16/17at 06:15; Start 10/16/17 at 06:15 ; Stop 10/19/17 at 06:14 Povidone Iodine (Betadine 7.5% Scrub) 1 applic ONCE TOPICAL ; Start 10/16/17 at 06:00; Stop 10/19/17 at 05:59 Rivaroxaban (Xarelto) 10 mg Q24H PO Last administered on 10/17/17at 08:10; Start 10/17/17 at 08:30 Sodium Chloride 500 ml @ 30 mls/hr [id number] PRN IV SEE LABEL COMMENTS; Start at 06:15; Stop 10/19/17 at 06:14 Tranexamic Acid 1000 mg/Sodium Chloride 110 ml @ 220 mls/hr ONCE IV Last administered on 10/16/17at 10:14; Start 10/16/17 at 10:00; Stop 10/16/17 at 11:00 ; Status DC Zolpidem Tartrate (Ambien) 5 mg HS PRN PO SLEEP; Start 10/16/17 at 21:00 A/P Assessment and Plan - avascular necrosis of the right hip- s/p right total hip replacement continue with pain control and PT- management per ortho. -nausea; improved- antiemetics as needed. -hypertension; resume enalapril at a lower dose- continue to monitor and adjust the regimen as needed. -anemia- post-op; will monitor for now. -CAD- s/p CABG; resume aspirin when ok with ortho. -BPH; resumed Doxazosin -DVT prophylaxis with Xarelto-per ortho Andreas Amaral MD Oct 17, 2017 10:57
[2017-10-17] MEDS ORDERED: DEXT 5%-NACL 0.45% 1000 ML INJ 1,000 ML IV ONE (11:30)
[2017-10-17] MEDS: ACETAMINOPHEN/HYDROcodone 325 MG/5 MG TAB PO PRN ×3 (13:07→21:09)
[2017-10-17] MEDS: HYDROmorphone HCL PCA 6 MG/30 ML IV SCH (14:49)
[2017-10-17] MEDS: DOXAZOSIN MESYLATE 4 MG TAB PO SCH (21:05)
[2017-10-18] VITALS (7 sets, daily range): BP systolic 137–160; BP diastolic 63–75; PULSE 73–83; RESP 17–20; TEMP 96.7–98.5; O2SAT 91–98
[2017-10-18] MEDS: PCA - TOTAL MG DILAUDID DELIVERED PER SHIFT SCH (06:00)
[2017-10-18] MEDS: RIVAROXABAN 10 MG TAB PO SCH (07:20)
[2017-10-18] MEDS: ENALAPRIL MALEATE 5 MG TAB PO SCH (07:20)
[2017-10-18] MEDS: ACETAMINOPHEN/HYDROcodone 325 MG/5 MG TAB PO PRN ×4 (07:21→20:59)
--- NOTE | 2017-10-18 11:01 | HHI.PR ---
Subjective Remarks in no acute distress. pain seems to be controlled. no fever. no BM yet. Objective Vitals Vital Signs Date Time Temp Pulse Resp B/P (MAP) Pulse Ox O2 Delivery O2 Flow Rate FiO2 10/18/17 08:30 18 10/18/17 08:00 98.2 81 20 151/68 (95) 92 10/18/17 06:00 18 10/18/17 04:00 98.5 75 20 141/72 (95) 98 10/18/17 00:00 97.0 78 20 143/75 (97) 93 10/17/17 21:06 18 10/17/17 20:00 99.8 96 20 142/73 (96) 91 10/17/17 19:56 92 21 10/17/17 16:00 97.0 80 18 153/72 (99) 92 10/17/17 15:19 18 10/17/17 14:49 18 10/17/17 13:08 18 10/17/17 12:00 96.9 65 18 148/75 (99) 90 I/O 10/17/17 10/17/17 10/17/17 10/18/17 10/18/17 10/18/17 07:00 15:00 23:00 07:00 15:00 23:00 Intake Total 2889 ml 600 ml 1000 ml 1052 ml 360 ml Output Total 550 ml 175 ml 100 ml 575 ml Balance 2339 ml 600 ml 825 ml 952 ml -215 ml Intake Oral 720 ml 600 ml 360 ml IV Total 2169 ml 1000 ml 1052 ml Output Urine Total 550 ml 175 ml 100 ml 575 ml # Voids 4 1 1 2 # Bowel Movements 0 0 0 Result Diagram: 10/17/17 0603 Imaging Last Impressions Hip X-Ray 10/16/17 0936 Signed Impressions: Service Date/Time: Monday, October 16, 2017 10:00 - CONCLUSION: Expected postsurgical changes status post total hip arthroplasty. Ramin Gary MD Objective Remarks GENERAL: This is a well-nourished, well-developed patient, in no apparent distress. CARDIOVASCULAR: Regular rate and regular rhythm without murmurs, gallops, or rubs. RESPIRATORY: Clear to auscultation. Breath sounds equal bilaterally. No wheezes , rales, or rhonchi. GASTROINTESTINAL: Abdomen soft, non-tender, nondistended. Normal, active bowel sounds MUSCULOSKELETAL: Extremities without clubbing, cyanosis, or edema. NEURO: Alert & Oriented x4 to person, place, time, situation. Moves all ext x4 Medications and IVs Inpatient Medications Acetaminophen (Tylenol) 650 mg Q6H PRN PO FEVER > 101; Start 10/16/17 at 09:45 Acetaminophen/ Hydrocodone Bitart ([place] 5-325 Mg) 2 tab Q4H PRN PO PAIN SCALE 5 TO 10 Last administered on 10/18/17at 07:21; Start 10/16/17 at 09:45 Cefazolin Sodium 1000 mg/Sodium Chloride 100 ml @ 200 mls/hr Q6H IV Last administered on 10/17/17at 01:33; Start 10/16/17 at 13:00; Stop 10/17/17 at 01:29 ; Status DC Cefazolin Sodium/ Dextrose 50 ml @ 100 mls/hr ACCOUNT UNDERWRITER IV Last administered on 10/16/17at 06:33; Start 10/16/17 at 06:00; Stop 10/19/17 at 05:59 Chlorhexidine Gluconate (Chlorhexidine 2% Cloth) 3 pack ACCOUNT UNDERWRITER PRN TOPICAL SEE LABEL COMMENTS Last administered on 10/16/17at 05:45; Start 10/16/17 at 06:15 ; Stop 10/19/17 at 06:14 Dextrose/Sodium Chloride 1,000 ml @ 75 mls/hr [id number] ONCE IV Last administered on 10/17/17at 11:23; Start 10/17/17 at 11:30; Stop 10/18/17 at 00:49 ; Status DC Docusate Sodium (Colace) 100 mg BID PRN PO CONSTIPATION; Start 10/16/17 at 09: 45 Doxazosin Mesylate (Cardura) 8 mg HS PO Last administered on 10/17/17at 21:05; Start 10/16/17 at 21:00 Enalapril Maleate (Vasotec) 5 mg DAILY PO Last administered on 10/18/17at 07:20 ; Start 10/18/17 at 09:00 Hydromorphone HCl (Dilaudid AUDIO OPERATOR Inj) 6 mg UNSCH IV Last administered on at 14:49; Start 10/16/17 at 09:45; Stop 10/18/17 at 09:44; Status DC Lactated Ringer's 1,000 ml @ 30 mls/hr Q24H PRN IV SEE LABEL COMMENTS; Start at 06:15; Stop 10/19/17 at 06:14 Metoprolol Tartrate (Lopressor) 25 mg ACCOUNT UNDERWRITER PRN PO SEE LABEL COMMENTS; Start 10/16/17 at 06:15; Stop 10/19/17 at 06:14 Miscellaneous Information ALL NURSING DEPARTME... UNSCH PRN .XX SEE LABEL COMMENTS; Start 10/16/17 at 09:32; Stop 10/17/17 at 09:31; Status DC Miscellaneous Information (Post-op Orders (for Pharmacy)) STAT ONCE XX ; Start 10/16/17 at 09:45; Stop 10/16/17 at 11:20; Status DC Miscellaneous Medication ([facility] Pharmacy Information) ONCE ONCE XX ; Start at 09:45; Stop 10/16/17 at 11:25; Status DC Naloxone HCl (Narcan Inj) 0.4 mg UNSCH PRN IV PUSH RESPIRATORY RATE LESS THAN 10; Start 10/16/17 at 09:45 Ondansetron HCl (Zofran Inj) 4 mg Q6H PRN IVP NAUSEA OR VOMITING Last administered on 10/16/17at 13:34; Start 10/16/17 at 09:45 AUDIO OPERATOR Dosage Infused (Pha) 1 Q8HR .XX Last administered on 10/18/17at 06:00; Start 10/16/17 at 14:00; Stop 10/18/17 at 13:59 Povidone Iodine (Betadine 5% Antisepsis Kit) 1 applic ACCOUNT UNDERWRITER PRN EACH NARE SEE LABEL COMMENTS Last administered on 10/16/17at 06:15; Start 10/16/17 at 06:15 ; Stop 10/19/17 at 06:14 Povidone Iodine (Betadine 7.5% Scrub) 1 applic ONCE TOPICAL ; Start 10/16/17 at 06:00; Stop 10/19/17 at 05:59 Rivaroxaban (Xarelto) 10 mg Q24H PO Last administered on 10/18/17at 07:20; Start 10/17/17 at 08:30 Sodium Chloride 500 ml @ 30 mls/hr [id number] PRN IV SEE LABEL COMMENTS; Start at 06:15; Stop 10/19/17 at 06:14 Tranexamic Acid 1000 mg/Sodium Chloride 110 ml @ 220 mls/hr ONCE IV Last administered on 10/16/17at 10:14; Start 10/16/17 at 10:00; Stop 10/16/17 at 11:00 ; Status DC Zolpidem Tartrate (Ambien) 5 mg HS PRN PO SLEEP; Start 10/16/17 at 21:00 A/P Assessment and Plan - avascular necrosis of the right hip- s/p right total hip replacement continue with pain control and PT- management per ortho. -nausea; improved- antiemetics as needed. -hypertension; resumed enalapril at a lower dose- continue to monitor and adjust the regimen as needed. -anemia- post-op; will monitor for now. -CAD- s/p CABG; resume aspirin when ok with ortho. -BPH; resumed Doxazosin -DVT prophylaxis with Xarelto-per ortho Discharge Planning dc planning per ortho. Andreas Amaral MD Oct 18, 2017 11:01
[2017-10-18] MEDS: MAGNESIUM HYDROXIDE SUSP 30 ML CUP PO ONE ×2 (17:00→17:43)
[2017-10-18] MEDS: DOXAZOSIN MESYLATE 4 MG TAB PO SCH (20:58)
[2017-10-18] MEDS: MAGNESIUM HYDROXIDE SUSP 30 ML CUP PO SCH ×2 (20:58→21:00)
[2017-10-19] VITALS: BP 134/69; PULSE 70; RESP 16; TEMP 96.5; O2SAT 95
[2017-10-19] MEDS: ACETAMINOPHEN/HYDROcodone 325 MG/5 MG TAB PO PRN ×2 (06:19→11:13)
[2017-10-19 08:00] VITALS: BP 151/70; PULSE 77; RESP 16; TEMP 97.3; O2SAT 93
[2017-10-19] MEDS: RIVAROXABAN 10 MG TAB PO SCH (09:03)
[2017-10-19] MEDS: ENALAPRIL MALEATE 5 MG TAB PO SCH (09:03)
[2017-10-19] MEDS: MAGNESIUM HYDROXIDE SUSP 30 ML CUP PO SCH (09:04)
--- NOTE | 2017-10-19 11:42 | HHI.PR ---
Subjective Remarks in no acute distress. pain is better. no BM yet. no other complaints. Objective Vitals Vital Signs Date Time Temp Pulse Resp B/P (MAP) Pulse Ox O2 Delivery O2 Flow Rate FiO2 10/19/17 08:00 97.3 77 16 151/70 (97) 93 10/19/17 00:00 96.5 70 16 134/69 (90) 95 10/18/17 20:00 96.7 83 17 160/67 (98) 93 10/18/17 18:15 18 10/18/17 16:00 97.9 75 20 137/63 (87) 96 10/18/17 12:00 97.0 73 20 146/67 (93) 94 I/O 10/18/17 10/18/17 10/18/17 10/19/17 10/19/17 10/19/17 07:00 15:00 23:00 07:00 15:00 23:00 Intake Total 1052 ml 600 ml 400 ml Output Total 100 ml 575 ml Balance 952 ml 25 ml 400 ml Intake Oral 600 ml 400 ml IV Total 1052 ml Output Urine Total 100 ml 575 ml # Voids 1 3 2 # Bowel Movements 0 Result Diagram: 10/17/17 0603 Imaging Last Impressions Hip X-Ray 10/16/17 0936 Signed Impressions: Service Date/Time: Monday, October 16, 2017 10:00 - CONCLUSION: Expected postsurgical changes status post total hip arthroplasty. Ramin Gary MD Objective Remarks GENERAL: This is a well-nourished, well-developed patient, in no apparent distress. CARDIOVASCULAR: Regular rate and regular rhythm without murmurs, gallops, or rubs. RESPIRATORY: Clear to auscultation. Breath sounds equal bilaterally. No wheezes , rales, or rhonchi. GASTROINTESTINAL: Abdomen soft, non-tender, nondistended. Normal, active bowel sounds MUSCULOSKELETAL: Extremities without clubbing, cyanosis, or edema. NEURO: Alert & Oriented x4 to person, place, time, situation. Moves all ext x4 Medications and IVs Inpatient Medications Acetaminophen (Tylenol) 650 mg Q6H PRN PO FEVER > 101; Start 10/16/17 at 09:45 Acetaminophen/ Hydrocodone Bitart ([place] 5-325 Mg) 2 tab Q4H PRN PO PAIN SCALE 5 TO 10 Last administered on 10/19/17at 11:13; Start 10/16/17 at 09:45 Cefazolin Sodium 1000 mg/Sodium Chloride 100 ml @ 200 mls/hr Q6H IV Last administered on 10/17/17at 01:33; Start 10/16/17 at 13:00; Stop 10/17/17 at 01:29 ; Status DC Cefazolin Sodium/ Dextrose 50 ml @ 100 mls/hr PAWN BROKER IV Last administered on 10/16/17at 06:33; Start 10/16/17 at 06:00; Stop 10/19/17 at 05:59; Status DC Chlorhexidine Gluconate (Chlorhexidine 2% Cloth) 3 pack PAWN BROKER PRN TOPICAL SEE LABEL COMMENTS Last administered on 10/16/17at 05:45; Start 10/16/17 at 06:15 ; Stop 10/19/17 at 06:14; Status DC Dextrose/Sodium Chloride 1,000 ml @ 75 mls/hr [id number] ONCE IV Last administered on 10/17/17at 11:23; Start 10/17/17 at 11:30; Stop 10/18/17 at 00:49 ; Status DC Docusate Sodium (Colace) 100 mg BID PRN PO CONSTIPATION; Start 10/16/17 at 09: 45 Doxazosin Mesylate (Cardura) 8 mg HS PO Last administered on 10/18/17at 20:58; Start 10/16/17 at 21:00 Enalapril Maleate (Vasotec) 5 mg DAILY PO Last administered on 10/19/17at 09:03 ; Start 10/18/17 at 09:00 Hydromorphone HCl (Dilaudid REFRACTORY SPECIALIST Inj) 6 mg UNSCH IV Last administered on at 14:49; Start 10/16/17 at 09:45; Stop 10/18/17 at 09:44; Status DC Lactated Ringer's 1,000 ml @ 30 mls/hr Q24H PRN IV SEE LABEL COMMENTS; Start at 06:15; Stop 10/19/17 at 06:14; Status DC Magnesium Hydroxide (Milk Of Magnesia Liq) 30 ml BID PO Last administered on at 09:04; Start 10/18/17 at 21:00 Metoprolol Tartrate (Lopressor) 25 mg PAWN BROKER PRN PO SEE LABEL COMMENTS; Start 10/16/17 at 06:15; Stop 10/19/17 at 06:14; Status DC Miscellaneous Information ALL NURSING DEPARTME... UNSCH PRN .XX SEE LABEL COMMENTS; Start 10/16/17 at 09:32; Stop 10/17/17 at 09:31; Status DC Miscellaneous Information (Post-op Orders (for Pharmacy)) STAT ONCE XX ; Start 10/16/17 at 09:45; Stop 10/16/17 at 11:20; Status DC Miscellaneous Medication ([facility] Information) ONCE ONCE XX ; Start at 09:45; Stop 10/16/17 at 11:25; Status DC Naloxone HCl (Narcan Inj) 0.4 mg UNSCH PRN IV PUSH RESPIRATORY RATE LESS THAN 10; Start 10/16/17 at 09:45 Ondansetron HCl (Zofran Inj) 4 mg Q6H PRN IVP NAUSEA OR VOMITING Last administered on 10/16/17at 13:34; Start 10/16/17 at 09:45 REFRACTORY SPECIALIST Dosage Infused (Pha) 1 Q8HR .XX Last administered on 10/18/17at 06:00; Start 10/16/17 at 14:00; Stop 10/18/17 at 13:59; Status DC Povidone Iodine (Betadine 5% Antisepsis Kit) 1 applic PAWN BROKER PRN EACH NARE SEE LABEL COMMENTS Last administered on 10/16/17at 06:15; Start 10/16/17 at 06:15 ; Stop 10/19/17 at 06:14; Status DC Povidone Iodine (Betadine 7.5% Scrub) 1 applic ONCE TOPICAL ; Start 10/16/17 at 06:00; Stop 10/19/17 at 05:59; Status DC Rivaroxaban (Xarelto) 10 mg Q24H PO Last administered on 10/19/17at 09:03; Start 10/17/17 at 08:30 Sodium Chloride 500 ml @ 30 mls/hr [id number] PRN IV SEE LABEL COMMENTS; Start at 06:15; Stop 10/19/17 at 06:14; Status DC Tranexamic Acid 1000 mg/Sodium Chloride 110 ml @ 220 mls/hr ONCE IV Last administered on 10/16/17at 10:14; Start 10/16/17 at 10:00; Stop 10/16/17 at 11:00 ; Status DC Zolpidem Tartrate (Ambien) 5 mg HS PRN PO SLEEP; Start 10/16/17 at 21:00 A/P Assessment and Plan - avascular necrosis of the right hip- s/p right total hip replacement continue with pain control and PT- management per ortho. -nausea; resolved. -hypertension; resume home meds upon discharge. -anemia- post-op; will monitor for now. -CAD- s/p CABG; resume aspirin when ok with ortho. -BPH; resumed Doxazosin -constipation; laxatives as needed. -DVT prophylaxis with Xarelto-per ortho Discharge Planning dc planning per ortho. Andreas Amaral MD Oct 19, 2017 11:42
[2017-10-19 12:00] VITALS: BP 147/69; PULSE 74; RESP 16; TEMP 97.6; O2SAT 94
--- NOTE | 2017-10-22 20:03 | MD ---
cc: ED GRUBER MD, HEZI M.D. LOPEZ, MARIA I. M.D. 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 BRIEF HISTORY: A 77-year-old white male with a 3-year history of right hip pain of gradual onset unrelated to injury or unusual activity. He had conformed to exercise activities initially under his own supervision which including using a treadmill but being aware of limited endurance with regards to all ambulatory activities. In March of this past year he began to note increasing discomfort that he suspected as being related to his lower back and at that time he was seen by his primary care physician, Dr. Nilda Verma, who prescribed physical therapy and later sent the patient for pain management disposition which included a series of epidural injections that unfortunately did not prove to be beneficial. The patient also received chiropractic intervention which included acupuncture treatment, neither of which afforded him any relief. He later underwent neurosurgical consultation. At that time was advised to consider MRI scan evaluation of his right hip. The study was subsequently accomplished and identified avascular necrosis about the superior articular surface of his right femoral head. There was secondary osteoarthritic changes with joint effusion and marrow edema. The patient was also noted to have a partial tear of his gluteus minimus muscle and partial tear versus myositis of the sartorius muscle overlying the hip joint. The patient was later seen by the undersigned physician in August of this year and at that time he reported ongoing difficulties with regards to all ambulatory activities. He was requiring use of a cane as an ambulatory aid. Overall findings were reviewed. Current x-ray studies did reveal obvious degenerative changes with pronounced narrowing of the joint space and early deformation of the femoral head. The pros and cons of continuing with conservative management versus operative intervention that would involve a total hip arthroplasty were outlined. Emphasis was made regarding the fact that the decision to proceed with surgery would be left entirely to the patient's discretion. The patient readily admitted that he felt his symptoms had progressed to that point in time where he was desirous of proceeding accordingly and in compliance with his wishes he was scheduled for admission in order that the above be accomplished. His physical examination at the time of admission revealed no localizing tenderness about the lateral aspect of the right hip. There was restricted and guarded mobility of the hip joint in all ranges assessed with pain at the extreme of motion. Straight-leg raising was unremarkable at 80 degrees. German sign was positive, limb length discrepancy with shortening on the right side of at least 1 cm magnitude, distal sensory grossly intact, pronounced antalgic gait with cane support. HOSPITAL COURSE Prior to admission to the hospital the patient had undergone medical evaluation and clearance for surgery as completed by his primary care physician Dr. Nilda Verma. Cardiology clearance per Dr. Dunham. He was taken to the operating room on 16 October 2017 and on that date underwent a right total hip arthroplasty completed in an uncomplicated manner. The patient was noted to have tolerated his operative procedure well. His postoperative course was stable thereafter. Hemoglobin/hematocrit assessment postoperatively was 12.6 and 36.7 respectively. The patient was progressively mobilized under the guidance of physical therapy being permitted weightbearing to tolerance about his right lower extremity. Follow up examination of his surgical wound noted to be intact healing favorably, no evidence of infection. Medical followup per the hospitalist service. DVT prophylaxis initiated. coordinator of rehabilitation services consulted to assist with discharge planning. Recommendation was made for rehab placement given the fact that the patient resided alone and did not have the benefit of full-time available help. He agreed to this recommendation and pending medical clearance he was scheduled for transfer on the third postoperative day at which time he was making slow but steady progress with regards to his rehab program. He was scheduled be seen in office followup in approximately 4 weeks. His condition at the time of transfer stable. Prognosis favorable DISCHARGE MEDICATIONS: Hydrocodone #60. Xarelto 10 milligrams, #30. MD KYA Braga/JORDAN /6:14 AM /7:46 PM
== END 2017-10-19 15:05 | DRG 470 ==
LOC: HSDI 05:35 → EDUNIT# 10:00 → N06B 13:08
PROVIDERS: ADMIT Orthopaedic Surgery; ATTEND Orthopaedic Surgery
PROC: 0SR904Z Replacement of Right Hip Joint with Ceramic on Polyethylene Synthetic Substitute, Open Approach (ICD-10-PCS; principal; 2017-10-16 06:48)
DX: M87.851 Other osteonecrosis, right femur (principal); D64.9 Anemia, unspecified; E66.01 Morbid (severe) obesity due to excess calories; I10 Essential (primary) hypertension; S76.011A Strain of muscle, fascia and tendon of right hip, initial encounter; F40.240 Claustrophobia; M16.7 Other unilateral secondary osteoarthritis of hip; M21.70 Unequal limb length (acquired), unspecified site; G47.30 Sleep apnea, unspecified; I25.10 Atherosclerotic heart disease of native coronary artery without angina pectoris; N40.0 Benign prostatic hyperplasia without lower urinary tract symptoms; J30.9 Allergic rhinitis, unspecified; R11.0 Nausea; K59.00 Constipation, unspecified; Z68.38 Body mass index [BMI] 38.0-38.9, adult; Z87.891 Personal history of nicotine dependence; Z88.2 Allergy status to sulfonamides; Z95.1 Presence of aortocoronary bypass graft; Z95.5 Presence of coronary angioplasty implant and graft; Z96.653 Presence of artificial knee joint, bilateral; Z98.1 Arthrodesis status
CPT/HCPCS: 73501; 85014; 85018; 86850; 86900; 86901; 88304; 88305; 88311; 94150; C1776; J0690; J1100; J1170; J2370; J2405; J3010; J7120